=== PATIENT | male | born 1990 | race Two or more races ===

== ENCOUNTER 2020-09-12 01:23 | Emergency (ER) | payer BC ==
[~2020-09-12] VITALS: Ht 175.3 cm; Wt 816.5 kg
[2020-09-12] MEDS ORDERED: IV NS 0.9% 1,000 ML BAG IV ONE (02:00)
--- NOTE | 2020-09-12 02:35 | NUR ---
BROUGHT TO CT
--- NOTE | 2020-09-12 03:55 | NUR ---
IV removed. Catheter intact and site benign. Pressure and 4x4 applied to site. No bleeding noted.
--- NOTE | 2020-09-12 03:55 | NUR ---
Patient discharged to home in stable condition. Written and verbal after care instructions given. Patient verbalizes understanding of instruction. Pt picked up by tamir. vss. Able to ambulate on his own.
[2020-09-12 03:56] VITALS: BP 127/71
== END 2020-09-12 03:57 | disposition home or self-care (01) ==
LOC: EDBD 01:26 → ER 01:26
DX: F10.129 Alcohol abuse with intoxication, unspecified (principal); R41.82 Altered mental status, unspecified; Y90.9 Presence of alcohol in blood, level not specified
CPT/HCPCS: 70450; 82962; 96360; 99284; J7030